=== PATIENT | male | born 1945 | race Caucasian/White ===

== ENCOUNTER 2022-04-13 08:31 | Outpatient (CLI) | payer MEDICARE ==
[2022-04-13] MEDS ORDERED: Magnevist 469MG/ML 20 ML VIAL ONE (13:39)
== END 2022-04-13 08:32 | disposition home or self-care (01) ==
LOC: CSHMRI 08:31
PROVIDERS: ATTEND Neurological Surgery
DX: R20.0 Anesthesia of skin (principal); M54.12 Radiculopathy, cervical region; M47.12 Other spondylosis with myelopathy, cervical region
CPT/HCPCS: 70553; 72141; A9579

== ENCOUNTER 2024-01-04 09:35 | Day surgery (SDC) | payer MEDICARE ==
[2024-01-04] MEDS ORDERED: Sodium Bicarbonate 2.5 MEQ/5 ML SDV ONE (10:24)
== END 2024-01-04 11:03 | disposition home or self-care (01) ==
LOC: CSHULT 09:35
PROVIDERS: ATTEND Specialist
DX: E04.1 Nontoxic single thyroid nodule (principal); D34 Benign neoplasm of thyroid gland; K21.9 Gastro-esophageal reflux disease without esophagitis; J30.9 Allergic rhinitis, unspecified; J34.3 Hypertrophy of nasal turbinates; E78.00 Pure hypercholesterolemia, unspecified; I10 Essential (primary) hypertension; Z98.890 Other specified postprocedural states; Z88.1 Allergy status to other antibiotic agents; Z87.891 Personal history of nicotine dependence
CPT/HCPCS: 10005; 88173; 88305